=== PATIENT | male | born 1945 | race Caucasian/White ===

== ENCOUNTER 2021-06-04 10:35 | Inpatient (IN) | payer MEDICARE ==
[~2021-06-04] VITALS: Ht 193 cm; Wt 96.2 kg
[2021-06-04 11:54] LABS: HEMOGLOBIN 13.2 gm/dl (14.0-17.5); RED BLOOD COUNT 4.31 M/UL (4.20-5.50); WHITE BLOOD COUNT 17.7 K/UL (4.5-11.0)
[2021-06-04 12:23] LABS: BUN/CREATININE RATIO 20 (0-10)
[2021-06-04] MEDS ORDERED: MONTELUKAST SOD10 MG PO (15:43)
[2021-06-04] MEDS ORDERED: OMEPRAZOLE40 MG PO (15:43)
[2021-06-04] MEDS ORDERED: SERTRALINE HCL50 MG PO (15:44)
[2021-06-04] MEDS ORDERED: POTASSIUM CHLO10 ME1 PO (15:44)
[2021-06-04] MEDS ORDERED: DOXAZOSIN MESYLA8 MG PO (15:44)
[2021-06-04] MEDS ORDERED: ZEBETA 5 MG TAB5 MG PO (15:44)
[2021-06-04] MEDS ORDERED: ASPIRIN EC81 MG PO (15:45)
[2021-06-05 04:34] LABS: HEMOGLOBIN 12.3 gm/dl (14.0-17.5); RED BLOOD COUNT 4.13 M/UL (4.20-5.50); WHITE BLOOD COUNT 15.5 K/UL (4.5-11.0)
[2021-06-05 05:10] LABS: BUN/CREATININE RATIO 20 (0-10)
[2021-06-06 04:03] LABS: HEMOGLOBIN 11.9 gm/dl (14.0-17.5); RED BLOOD COUNT 3.87 M/UL (4.20-5.50)
[2021-06-06 04:29] LABS: BUN/CREATININE RATIO 23 (0-10)
[2021-06-07 06:52] LABS: HEMOGLOBIN 10.9 gm/dl (14.0-17.5); RED BLOOD COUNT 3.72 M/UL (4.20-5.50); WHITE BLOOD COUNT 8.7 K/UL (4.5-11.0)
[2021-06-07 07:09] LABS: BUN/CREATININE RATIO 20 (0-10)
[2021-06-07] MEDS ORDERED: CIPRO500 MG PO (09:13)
[2021-06-07] MEDS ORDERED: FLAGYL 250 MG250 MG PO ×2 (09:13→09:19)
[2021-06-07] MEDS ORDERED: LOPRESSOR 25 MG25 MG PO (09:13)
== END 2021-06-07 11:55 | disposition home or self-care (01) | DRG 391 ==
LOC: ER1 10:35 → M/S 15:17 → CDU 15:17 → M/S 17:14
PROVIDERS: Emergency Medicine; Internal Medicine; Physician Assistant; ADMIT Internal Medicine
PROC: B24BZZZ Ultrasonography of Heart with Aorta (ICD-10-PCS; principal; 2021-06-05)
DX: K57.20 Diverticulitis of large intestine with perforation and abscess without bleeding (principal); R57.8 Other shock; I47.1 Supraventricular tachycardia; I50.32 Chronic diastolic (congestive) heart failure; E87.1 Hypo-osmolality and hyponatremia; Z20.822 Contact with and (suspected) exposure to COVID-19; E87.6 Hypokalemia; N40.0 Benign prostatic hyperplasia without lower urinary tract symptoms; E83.42 Hypomagnesemia; K21.9 Gastro-esophageal reflux disease without esophagitis; I11.0 Hypertensive heart disease with heart failure; I08.3 Combined rheumatic disorders of mitral, aortic and tricuspid valves; I27.20 Pulmonary hypertension, unspecified; Z87.828 Personal history of other (healed) physical injury and trauma; Z79.2 Long term (current) use of antibiotics; Z79.82 Long term (current) use of aspirin; Z72.89 Other problems related to lifestyle; Z88.2 Allergy status to sulfonamides; Z80.9 Family history of malignant neoplasm, unspecified
CPT/HCPCS: ECHO; 36415; 70450; 80048; 80053; 81001; 82550; 82553; 83605; 83690; 83735; 84132; 84439; 84443; 84484; 85025; 85027; 87040; 93005; 93306; 96374; 96375; 96376; 99285; C9113; J2270; J2405; J2543; J3480; Q9967; U0002

== ENCOUNTER 2021-06-20 13:33 | Inpatient (IN) | payer MEDICARE ==
[~2021-06-20] VITALS: Ht 193 cm; Wt 91.6 kg
[~2021-06-20 13:33] MED LIST: ASPIRIN EC81 MG PO; CIPRO500 MG PO; DOXAZOSIN MESYLA8 MG PO; FLAGYL 250 MG250 MG PO; LOPRESSOR 25 MG25 MG PO; MONTELUKAST SOD10 MG PO; OMEPRAZOLE40 MG PO; POTASSIUM CHLO10 ME1 PO; SERTRALINE HCL50 MG PO; ZEBETA 5 MG TAB5 MG PO
[2021-06-20 14:46] LABS: HEMOGLOBIN 12.6 gm/dl (14.0-17.5); RED BLOOD COUNT 4.18 M/UL (4.20-5.50); WHITE BLOOD COUNT 11.8 K/UL (4.5-11.0)
[2021-06-20 15:06] LABS: BUN/CREATININE RATIO 15 (0-10)
[2021-06-21 04:45] LABS: HEMOGLOBIN 11.2 gm/dl (14.0-17.5); RED BLOOD COUNT 3.8 M/UL (4.20-5.50); WHITE BLOOD COUNT 10.4 K/UL (4.5-11.0)
[2021-06-21 05:17] LABS: BUN/CREATININE RATIO 14 (0-10)
[2021-06-21] MEDS ORDERED: BUSPIRONE HCL15 MG PO (10:17)
[2021-06-21] MEDS ORDERED: ZEBETA 5 MG TAB5 MG PO (10:17)
[2021-06-22 06:20] LABS: HEMOGLOBIN 11.1 gm/dl (14.0-17.5); RED BLOOD COUNT 3.71 M/UL (4.20-5.50); WHITE BLOOD COUNT 8.8 K/UL (4.5-11.0)
[2021-06-22 06:49] LABS: BUN/CREATININE RATIO 10 (0-10)
[2021-06-22] MEDS ORDERED: HYDROCODON-ACE1 EAC4 PO (08:25)
[2021-06-22] MEDS ORDERED: AUGMENTIN 500-1 EACH PO (08:25)
--- NOTE | 2021-06-22 11:18 | NUR ---
1100 PATIENT AND DAUGHTER/CAREGIVER EDUCATED ON SHERITA DRAIN USE/EMPTYING. DAUGHTER DEMONSTRATED KNOWLEDGE, PATIENT VERBALIZED KNOWLEDGE.
== END 2021-06-22 11:17 | disposition home or self-care (01) | DRG 357 ==
LOC: ER1 13:33 → MED SURG 4 19:12 → CDU 19:12 → MED SURG 4 06-21 04:41
PROVIDERS: Emergency Medicine; Surgery; ADMIT Internal Medicine
PROC: 0D9W4ZZ Drainage of Peritoneum, Percutaneous Endoscopic Approach (ICD-10-PCS; principal; 2021-06-21 09:15)
DX: K57.20 Diverticulitis of large intestine with perforation and abscess without bleeding (principal); E87.1 Hypo-osmolality and hyponatremia; I50.32 Chronic diastolic (congestive) heart failure; D64.9 Anemia, unspecified; N40.0 Benign prostatic hyperplasia without lower urinary tract symptoms; I11.0 Hypertensive heart disease with heart failure; G89.29 Other chronic pain; K21.9 Gastro-esophageal reflux disease without esophagitis; Z88.2 Allergy status to sulfonamides; E86.1 Hypovolemia
CPT/HCPCS: 36415; 80053; 81001; 82272; 83690; 83735; 85025; 85027; 87040; 93005; 96365; 96375; 96376; 99285; J2001; J2250; J2270; J2405; J2543; J2704; J3010; J7030; J7040; J7120; Q9967; U0002